=== PATIENT | male | born 1985 | race Caucasian/White ===

== ENCOUNTER 2016-05-12 15:09 | Emergency (ER) | payer MEDICARE, MEDICAID ==
[~2016-05-12] VITALS: Ht 182.8 cm; Wt 95.3 kg
[~2016-05-12 15:09] MED LIST: 'PARAFON FORTE500 M1 PO; ANAPROX DS550 MG PO; ASPIRIN LITE C325 MG PO; ATARAX25 MG PO; BACTRIM DS 8001 TA1 PO; BENADRYL25 MG PO; CYCLOBENZAPRINE10 MG PO; FLEXERIL10 MG PO; FLEXERIL5 MG PO; FLOMAX0.4 MG PO; HYDROCODONE BIT1 T11 PO; IBU800 M1 PO; KEFLEX500 MG PO; LISINOPRIL10 M1 PO; LISINOPRIL20 MG PO; MOTRIN800 MG PO; Motrin,Rufen800 MG PO; NAPROSYN500 MG PO; NEURONTIN100 MG PO; NKHM; NORCO 5-325 TA1 EACH PO; Orphenadrine C100 MG PO; PERCOCET 325 MG1 TA2; PERCOCET 325 MG1 TA2 PO; PREDNICOT20 MG PO; PREDNISONE10 M1 PO; PREDNISONE20 M1 PO; PREDNISONE20 MG PO; PRILOSEC10 MG/Pack PO; TIZANIDINE4 MG PO; TRAMADOL HCL50 MG PO; ULTRAM50 MG PO; ZANAFLEX CAPSULE2 MG PO; ZOFRAN ODT4 MG SL; ZYRTEC10 MG PO
[2016-05-12 15:50] LABS: BILIRUBIN NEGATIVE (NEGATIVE); BLOOD TRACE-INTACT (NEGATIVE); CLARITY SL CLOUDY (CLEAR); COLOR YELLOW (YELLOW); GLUCOSE NEGATIVE (NEGATIVE); KETONE NEGATIVE (NEGATIVE); LEUKO ESTERASE TRACE (NEGATIVE); NITRITE NEGATIVE (NEGATIVE); PH 5.5 (5.0-9.0); PROTEIN NEGATIVE (NEGATIVE); SPECIFIC GRAVITY >= 1.030 (1.005-1.030); UROBILINOGEN 0.2 E.U./dl (0.2-1.0)
[2016-05-12 16:03] LABS: BACTERIA 1+; CALCIUM OXALATE CRYSTALS 3+; EPITHELIAL CELLS 0-2; RBC 0-2 rbc/hpf (0-2)
[2016-05-12 16:04] LABS: MUCOUS TRACE; URINE REFLEX COMMENT YES (NO)
[2016-05-12 16:11] LABS: BASO # 0.1 10*3/uL (0.0-0.1); BASO % 0.4 % (0.0-1.0); EOS # 0.2 10*3/uL (0.0-0.4); EOS % 1.8 % (1.0-4.0); HEMATOCRIT 49.4 % (42.0-52.0); HEMOGLOBIN 16.7 g/dl (14.0-18.0); IG # 0.1 10*3/uL (0.0-0.1); LYMPH # 2.6 10*3/uL (1.3-4.4); LYMPH % 18.9 % (27.0-41.0); MEAN CELL VOLUME 89.3 fl (80.0-94.0); MEAN CORPUSCULAR HGB 30.2 pg (27.0-31.0); MEAN CORPUSCULAR HGB CONC 33.8 g/dl (33.0-37.0); MEAN PLATELET VOLUME 9.1 fl (9.6-12.3); MONO % 7.3 % (3.0-9.0); NEUT # 9.7 10*3/uL (2.3-7.9); NEUT % 70.9 % (47.0-73.0); PLATELET COUNT AUTOMATED 338 10*3/uL (130-400); RED BLOOD COUNT 5.53 10*6/uL (4.50-5.90); WHITE BLOOD COUNT 13.7 10*3/uL (4.8-10.8)
[2016-05-12 16:26] LABS: ALBUMIN 3.8 gm/dl (3.1-4.5); ALKALINE PHOSPHATASE 89 U/L (45-117); BILIRUBIN, TOTAL 0.3 mg/dl (0.2-1.0); BUN 12 mg/dl (7-24); CARBON DIOXIDE 23 mmol/L (21-32); CHLORIDE 105 mmol/L (98-107); EST GLOM FILT AFRICAN AMERICAN > 60 ml/min; GLUCOSE 79 mg/dL (65-99); POTASSIUM 3.8 mmol/L (3.5-5.1); SGOT/AST 14 IU/L (3-35); SGPT/ALT 28 U/L (12-78); SODIUM 141 mmol/L (136-145); TOTAL PROTEIN 7.4 gm/dL (6.4-8.2)
[2016-05-12] MEDS ORDERED: LEVAQUIN750 M1 PO (16:32)
[2016-05-12] MEDS ORDERED: PERCOCET 325 MG1 TA2 PO (16:35)
== END 2016-05-12 17:23 | disposition home or self-care (01) ==
LOC: ED 15:09
PROVIDERS: Registered Nurse
DX: N20.0 Calculus of kidney (principal); N13.39 Other hydronephrosis; N30.00 Acute cystitis without hematuria; F17.200 Nicotine dependence, unspecified, uncomplicated

== ENCOUNTER → 2016-05-21 | Day surgery (SDC) | payer MEDICARE, MEDICAID ==
[2016-05-18 09:45] VITALS: BP 138/74
[2016-05-18 10:29] LABS: BILIRUBIN NEGATIVE (NEGATIVE); BLOOD NEGATIVE (NEGATIVE); CLARITY CLEAR (CLEAR); COLOR YELLOW (YELLOW); GLUCOSE NEGATIVE (NEGATIVE); KETONE 1+ (NEGATIVE); LEUKO ESTERASE NEGATIVE (NEGATIVE); NITRITE NEGATIVE (NEGATIVE); PROTEIN NEGATIVE (NEGATIVE); SPECIFIC GRAVITY >= 1.030 (1.005-1.030); UROBILINOGEN 0.2 E.U./dl (0.2-1.0)
[~2016-05-21] VITALS: Ht 177.8 cm
[~2016-05-21] MED LIST changes: +IBU800 MG PO; +LEVAQUIN750 M1 PO; +OMEPRAZOLE20 M2 PO; +PERCOCET 325 MG1 TA6 PO; +ZOFRAN4 MG PO
--- NOTE | ~2016-05-21 | O ---
[place], [place] OPERATIVE NOTE NAME[id number] UNIT #: [id number] ROOM: DOCTOR: KALINA PADILLA MD BIRTHDATE: [birth year] DOS: 05/21/2016 PREOPERATIVE DIAGNOSIS: Right ureteral calculus. POSTOPERATIVE DIAGNOSIS: Status post passage of the right ureteral calculus. FINDINGS: Preop KUB taken did not show any definite evidence of ureteral calculus. The retrograde pyelogram also showed there was no evidence of filling defect, ureteral obstruction, hydronephrosis or hydroureter or any signs of a ureteral calculus. The anterior urethra was normal. Prostatic urethra was normal without any bladder outlet obstruction. Bladder showed normal mucosa with no tumor, stones, or diverticula. Both ureteral orifices were in normal location. The ureteral orifice; however, showed evidence of petechial hemorrhages, submucosal hemorrhages around the orifice highly suggestive of status post passage of the ureteral calculus. DESCRIPTION OF PROCEDURE: After obtaining satisfactory general anesthesia, the patient was placed in lithotomy position. Genitalia was prepped and draped in sterile manner. A 21 ACMI scope was placed into the bladder. Cystoscopy performed. Findings dictated in aforementioned. The right orifice was then cannulated with size 6 open-ended catheter and the contrast was injected. Under fluoroscopy, the entire ureter was examined, that showed the free flow of the contrast up and down the ureter without any filling defects, hydroureter, hydronephrosis. The real time retrograde also performed twice and on multiple occasions, and that showed a complete and a very prompt emptying of the collecting system suggestive of passage of the ureteral calculus ____. At this point, therefore, I decided not to perform any further instrumentation such as ureteroscopy. The cystoscope was then removed and the patient was recovered from anesthesia and was transferred to recovery room in satisfactory condition. KALINA PADILLA MD CM:OPRECORD:OPERATIVE NOTE [id number] KALINA PADILLA MD 05/21/16 103 interface
[2016-05-21 08:12] VITALS: BP 119/72
[2016-05-21 09:08] VITALS: BP 118/78
[2016-05-21 09:23] VITALS: BP 118/78
[2016-05-21 09:38] VITALS: BP 121/74
[2016-05-21 09:50] VITALS: BP 118/78
[2016-05-21 10:08] VITALS: BP 118/78
== END | disposition home or self-care (01) ==
LOC: SDC 05-18 09:30
PROVIDERS: Urology
DX: N20.1 Calculus of ureter (principal); Z83.3 Family history of diabetes mellitus; Z82.49 Family history of ischemic heart disease and other diseases of the circulatory system; Z81.8 Family history of other mental and behavioral disorders

== ENCOUNTER 2016-05-27 15:04 | Emergency (ER) | payer MEDICARE, MEDICAID ==
[~2016-05-27] VITALS: Ht 182.8 cm; Wt 95.3 kg
== END 2016-05-27 16:21 | disposition home or self-care (01) ==
LOC: ED 15:04
DX: S63.501A Unspecified sprain of right wrist, initial encounter (principal); M25.512 Pain in left shoulder; F17.200 Nicotine dependence, unspecified, uncomplicated; Z98.890 Other specified postprocedural states; Z79.899 Other long term (current) drug therapy; X58.XXXA Exposure to other specified factors, initial encounter; Y93.89 Activity, other specified; Y92.89 Other specified places as the place of occurrence of the external cause; Y99.9 Unspecified external cause status

== ENCOUNTER 2016-06-03 15:03 | Emergency (ER) | payer MEDICARE, MEDICAID ==
[~2016-06-03] VITALS: Ht 182.8 cm; Wt 95.3 kg
== END 2016-06-03 15:40 | disposition home or self-care (01) ==
LOC: ED 15:03
DX: M25.512 Pain in left shoulder (principal); R03.0 Elevated blood-pressure reading, without diagnosis of hypertension; F17.200 Nicotine dependence, unspecified, uncomplicated; Z87.442 Personal history of urinary calculi; I10 Essential (primary) hypertension

== ENCOUNTER 2016-06-12 21:46 | Inpatient (IN) | payer MEDICARE, MEDICAID ==
[~2016-06-12] VITALS: Ht 182.8 cm; Wt 92.2 kg
[2016-06-12 21:54] VITALS: BP 142/82
[2016-06-12 22:02] LABS: BASO # 0.1 10*3/uL (0.0-0.1); BASO % 0.5 % (0.0-1.0); EOS # 0.1 10*3/uL (0.0-0.4); EOS % 0.6 % (1.0-4.0); HEMATOCRIT 48.5 % (42.0-52.0); HEMOGLOBIN 16.4 g/dl (14.0-18.0); IG # 0.1 10*3/uL (0.0-0.1); LYMPH # 3.4 10*3/uL (1.3-4.4); LYMPH % 30.7 % (27.0-41.0); MEAN CELL VOLUME 89.2 fl (80.0-94.0); MEAN CORPUSCULAR HGB 30.1 pg (27.0-31.0); MEAN CORPUSCULAR HGB CONC 33.8 g/dl (33.0-37.0); MEAN PLATELET VOLUME 9.4 fl (9.6-12.3); MONO # 0.6 10*3/uL (0.1-1.0); MONO % 5.6 % (3.0-9.0); NEUT % 62.1 % (47.0-73.0); PLATELET COUNT AUTOMATED 315 10*3/uL (130-400); RED BLOOD COUNT 5.44 10*6/uL (4.50-5.90); RED CELL DISTRI WIDTH 13.3 % (0-14.5); WHITE BLOOD COUNT 11.2 10*3/uL (4.8-10.8)
[2016-06-12 22:12] LABS: PROTHROMBIN TIME 10.6 SECONDS (9.0-12.4)
[2016-06-12 22:20] LABS: ALKALINE PHOSPHATASE 89 U/L (45-117); BILIRUBIN, TOTAL 0.3 mg/dl (0.2-1.0); BUN 16 mg/dl (7-24); CARBON DIOXIDE 27 mmol/L (21-32); CHLORIDE 106 mmol/L (98-107); EST GLOM FILT AFRICAN AMERICAN > 60 ml/min; GLUCOSE 94 mg/dL (65-99); MAGNESIUM 2.4 mg/dL (1.5-2.1); POTASSIUM 3.9 mmol/L (3.5-5.1); SGOT/AST 34 IU/L (3-35); SGPT/ALT 49 U/L (12-78); SODIUM 143 mmol/L (136-145); TOTAL PROTEIN 7.9 gm/dL (6.4-8.2)
[2016-06-12 22:21] LABS: TROPONIN I < 0.015 ng/ml (<0.045)
[2016-06-12 22:32] VITALS: BP 128/84
[2016-06-12 23:09] VITALS: BP 135/83
[2016-06-12 23:11] LABS: BILIRUBIN NEGATIVE (NEGATIVE); BLOOD NEGATIVE (NEGATIVE); CLARITY SL CLOUDY (CLEAR); COLOR YELLOW (YELLOW); GLUCOSE NEGATIVE (NEGATIVE); KETONE TRACE (NEGATIVE); LEUKO ESTERASE NEGATIVE (NEGATIVE); NITRITE NEGATIVE (NEGATIVE); PROTEIN TRACE (NEGATIVE); SPECIFIC GRAVITY 1.015 (1.005-1.030)
[2016-06-12 23:20] LABS: URINE AMPHETAMINES < 1000 (1000ng/ml); URINE BARBITURATES < 200 (200ng/ml); URINE COCAINE < 300 (300ng/ml)
[2016-06-12 23:22] LABS: BACTERIA 1+; EPITHELIAL CELLS 0-2; URINE REFLEX COMMENT NO (NO); WBC 0-2 wbc/hpf (0-5)
[2016-06-12 23:40] VITALS: BP 126/70
[2016-06-12 23:49] VITALS: BP 110/79
[2016-06-12 23:53] VITALS: BP 123/73
[2016-06-13 00:18] VITALS: BP 119/70
[2016-06-13 00:30] VITALS: BP 121/76
[2016-06-13 04:00] VITALS: BP 122/79
[2016-06-13 06:39] LABS: BASO # 0.1 10*3/uL (0.0-0.1); BASO % 0.7 % (0.0-1.0); EOS # 0.2 10*3/uL (0.0-0.4); EOS % 2.4 % (1.0-4.0); HEMATOCRIT 49.7 % (42.0-52.0); HEMOGLOBIN 16.4 g/dl (14.0-18.0); IG # 0.1 10*3/uL (0.0-0.1); LYMPH # 3.9 10*3/uL (1.3-4.4); LYMPH % 39.6 % (27.0-41.0); MEAN PLATELET VOLUME 9.2 fl (9.6-12.3); MONO # 0.7 10*3/uL (0.1-1.0); MONO % 7.2 % (3.0-9.0); NEUT # 4.9 10*3/uL (2.3-7.9); NEUT % 49.6 % (47.0-73.0); PLATELET COUNT AUTOMATED 293 10*3/uL (130-400); RED BLOOD COUNT 5.46 10*6/uL (4.50-5.90); RED CELL DISTRI WIDTH 13.3 % (0-14.5); WHITE BLOOD COUNT 9.9 10*3/uL (4.8-10.8)
[2016-06-13 07:05] LABS: ALBUMIN 3.7 gm/dl (3.1-4.5); ALKALINE PHOSPHATASE 85 U/L (45-117); BILIRUBIN, TOTAL 0.5 mg/dl (0.2-1.0); BUN 16 mg/dl (7-24); CARBON DIOXIDE 26 mmol/L (21-32); CHLORIDE 104 mmol/L (98-107); CHOLESTEROL 213 mg/dL (<200); EST GLOM FILT AFRICAN AMERICAN > 60 ml/min; GLUCOSE 92 mg/dL (65-99); HDL CHOLESTEROL 39 mg/dl (40-60); LDL CHOLESTEROL 121 mg/dL (9-159); MAGNESIUM 2.5 mg/dL (1.5-2.1); PHOSPHOROUS 3.7 mg/dL (2.5-4.9); POTASSIUM 3.7 mmol/L (3.5-5.1); SGOT/AST 32 IU/L (3-35); SGPT/ALT 49 U/L (12-78); SODIUM 142 mmol/L (136-145); TOTAL PROTEIN 7.4 gm/dL (6.4-8.2); TRIGLYCERIDES 267 mg/dl (<150); VLDL CHOLESTEROL 53 mg/dL (6-40)
[2016-06-13 07:06] LABS: PROTHROMBIN TIME 10.5 SECONDS (9.0-12.4)
[2016-06-13 08:00] VITALS: BP 124/78
[2016-06-13 08:02] LABS: HEMOGLOBIN A1c 5.8 % (4.8-5.6)
[2016-06-13 09:55] LABS: VITAMIN D, 25-HYDROXY 16.8 ng/mL (30-100)
[2016-06-13 09:56] LABS: FOLIC ACID 4.21 ng/mL (>5.38)
[2016-06-13 12:00] VITALS: BP 134/66
== END 2016-06-13 14:05 | disposition home or self-care (01) | DRG 313 ==
LOC: ED 21:46 → EDHOLD 23:57 → 4E 23:57
PROVIDERS: Emergency Medicine Emergency Medical Services; Student in an Organized Health Care Education/Training Program
DX: R07.89 Other chest pain (principal); E83.41 Hypermagnesemia; I10 Essential (primary) hypertension; M19.90 Unspecified osteoarthritis, unspecified site; M54.9 Dorsalgia, unspecified; F17.210 Nicotine dependence, cigarettes, uncomplicated; G89.29 Other chronic pain; F15.10 Other stimulant abuse, uncomplicated; R82.71 Bacteriuria; E78.5 Hyperlipidemia, unspecified; Z71.6 Tobacco abuse counseling; Z82.49 Family history of ischemic heart disease and other diseases of the circulatory system; Z90.49 Acquired absence of other specified parts of digestive tract

== ENCOUNTER 2016-06-18 13:54 | Emergency (ER) | payer MEDICARE, MEDICAID ==
[~2016-06-18] VITALS: Ht 182.8 cm; Wt 90.7 kg
[2016-06-18] MEDS ORDERED: NAPROSYN500 MG PO (14:51)
== END 2016-06-18 15:36 | disposition home or self-care (01) ==
LOC: ED 13:54
DX: G89.29 Other chronic pain (principal); M25.512 Pain in left shoulder; F17.200 Nicotine dependence, unspecified, uncomplicated

== ENCOUNTER → 2016-06-19 | Outpatient (CLI) | payer MEDICARE, MEDICAID | END | disposition home or self-care (01) | LOC: RESCLI 01:29 | DX: M62.838 Other muscle spasm (principal); R07.89 Other chest pain ==

== ENCOUNTER → 2016-06-26 | Outpatient (CLI) | payer MEDICARE, MEDICAID | END | disposition home or self-care (01) | LOC: MRI 10:59 | DX: S46.002A Unspecified injury of muscle(s) and tendon(s) of the rotator cuff of left shoulder, initial encounter (principal); M19.012 Primary osteoarthritis, left shoulder; X58.XXXA Exposure to other specified factors, initial encounter; Y93.89 Activity, other specified; Y92.89 Other specified places as the place of occurrence of the external cause; Y99.8 Other external cause status ==

== ENCOUNTER 2017-03-27 17:10 | Emergency (ER) | payer MEDICARE, MEDICAID ==
[~2017-03-27] VITALS: Ht 182.8 cm; Wt 97.5 kg
[2017-03-27] MEDS ORDERED: Motrin,Rufen800 MG PO (20:04)
== END 2017-03-27 20:07 | disposition home or self-care (01) ==
LOC: ED 17:10
DX: S80.01XA Contusion of right knee, initial encounter (principal); F17.200 Nicotine dependence, unspecified, uncomplicated; Z90.49 Acquired absence of other specified parts of digestive tract; Z98.890 Other specified postprocedural states; W22.8XXA Striking against or struck by other objects, initial encounter; Y93.89 Activity, other specified; Y92.89 Other specified places as the place of occurrence of the external cause; Y99.9 Unspecified external cause status